=== PATIENT | male | born 1980 | race Caucasian/White ===

== ENCOUNTER 2021-01-30 10:25 | Observation (INO) | payer BC ==
[~2021-01-30] VITALS: Ht 175.3 cm; Wt 108.9 kg
[~2021-01-30 10:25] MED LIST: AFRIN15 M1; CYCLOBENZAPRINE10 MG PO; TRAMADOL HCL50 MG PO
[2021-01-30 11:15] LABS: HEMOGLOBIN 16.3 gm/dl (14.0-17.5); RED BLOOD COUNT 5.38 M/UL (4.20-5.50); WHITE BLOOD COUNT 11.9 K/UL (4.5-11.0)
[2021-01-30 11:42] LABS: BUN/CREATININE RATIO 16 (0-10)
[2021-01-30] MEDS ORDERED: TENORMIN 25 MG25 MG PO (16:18)
[2021-01-30] MEDS ORDERED: LISINOPRIL5 MG PO (16:18)
[2021-01-30] MEDS ORDERED: IBUPROFEN200 MG PO (16:21)
[2021-01-31 01:43] LABS: HEMOGLOBIN 14.7 gm/dl (14.0-17.5); RED BLOOD COUNT 4.95 M/UL (4.20-5.50); WHITE BLOOD COUNT 14.5 K/UL (4.5-11.0)
[2021-01-31 03:26] LABS: BUN/CREATININE RATIO 17 (0-10)
[2021-01-31] MEDS ORDERED: ISOSORBIDE MONO30 MG PO (13:06)
[2021-01-31] MEDS ORDERED: LISINOPRIL40 MG PO (13:06)
[2021-01-31] MEDS ORDERED: CARVEDILOL12.5 MG PO (13:06)
[2021-01-31] MEDS ORDERED: CLOPIDOGREL75 MG PO (13:06)
[2021-01-31] MEDS ORDERED: ATORVASTATIN CA20 MG PO (13:06)
== END 2021-01-31 16:26 | disposition home or self-care (01) ==
LOC: ER1 10:25 → CDU 13:16 → MED SURG 4 16:09
PROVIDERS: Physician Assistant; Physician Assistant Medical; ADMIT Internal Medicine Infectious Disease
DX: I16.0 Hypertensive urgency (principal); I10 Essential (primary) hypertension; I51.89 Other ill-defined heart diseases; I07.1 Rheumatic tricuspid insufficiency; F17.220 Nicotine dependence, chewing tobacco, uncomplicated; E66.9 Obesity, unspecified; Z68.35 Body mass index [BMI] 35.0-35.9, adult; Z20.822 Contact with and (suspected) exposure to COVID-19; Z79.899 Other long term (current) drug therapy; Z88.6 Allergy status to analgesic agent; Z96.691 Finger-joint replacement of right hand
CPT/HCPCS: ECHO; 36415; 71045; 78452; 80048; 80053; 80061; 82550; 82553; 83036; 83735; 83874; 84484; 85025; 85027; 93005; 93017; 93306; 96374; 96375; 99285; A9502; G0378; J0360; J2785; U0002

== ENCOUNTER 2021-02-03 12:42 | Inpatient (IN) | payer BC ==
[~2021-02-03] VITALS: Ht 172.7 cm; Wt 108.4 kg
[~2021-02-03 12:42] MED LIST changes: +ATORVASTATIN CA20 MG PO; +CARVEDILOL12.5 MG PO; +CLOPIDOGREL75 MG PO; +IBUPROFEN200 MG PO; +ISOSORBIDE MONO30 MG PO; +LISINOPRIL40 MG PO; +LISINOPRIL5 MG PO; +TENORMIN 25 MG25 MG PO
[2021-02-03 14:27] LABS: HEMOGLOBIN 15.4 gm/dl (14.0-17.5); RED BLOOD COUNT 5.06 M/UL (4.20-5.50); WHITE BLOOD COUNT 11.5 K/UL (4.5-11.0)
[2021-02-03 15:20] LABS: BUN/CREATININE RATIO 18 (0-10)
[2021-02-03] MEDS ORDERED: LIPITOR40 MG PO (15:59)
[2021-02-03] MEDS ORDERED: PLAVIX 75 MG TA75 MG PO (15:59)
[2021-02-03] MEDS ORDERED: COREG12.5 MG PO (15:59)
[2021-02-03] MEDS ORDERED: ISOSORBIDE MONO30 MG PO (16:00)
[2021-02-03] MEDS ORDERED: ZESTRIL40 MG PO (16:01)
[2021-02-04 02:48] LABS: HEMOGLOBIN 14.3 gm/dl (14.0-17.5); RED BLOOD COUNT 4.8 M/UL (4.20-5.50); WHITE BLOOD COUNT 13.9 K/UL (4.5-11.0)
[2021-02-04 03:13] LABS: BUN/CREATININE RATIO 18 (0-10)
[2021-02-05 02:53] LABS: BUN/CREATININE RATIO 19 (0-10)
--- NOTE | 2021-02-05 09:55 | NUR ---
TR BAND IN PLACE WITH ARM BAND IN PLACE TO PREVENT BENDING OF RIGHT WRIST. NO S/SX OF BLEEDING NOTED TO SITE. DECREASED SENSATION NOTED TO RIGHT HAND R/T ANESTHESIA. CAPILLARY REFILL LESS THAN THREE SECONDS. DENIES PAIN AND DISCOMFORT. KNEE HIGH SCUDS IN PLACE. BED LOCKED AND LOW. CALL LIGHT WITHIN REACH. PATIENT'S FATHER AT BEDSIDE. SURGICAL VITALS BEGAN PER PROTOCAL.
[2021-02-05] MEDS ORDERED: ISOSORBIDE MONO60 MG PO (12:18)
[2021-02-05] MEDS ORDERED: CATAPRES 0.1MG0.1 MG PO (12:18)
--- NOTE | 2021-02-05 14:18 | NUR ---
Instructed patient and brother, new PCP per pt request appointment made. med change to 60 mg imdur vs 30 mg. 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 Appointment made with resource manager. Keep appointments. verbalized understanding. Christina Oakes R.N.
== END 2021-02-05 14:44 | disposition home or self-care (01) | DRG 287 ==
LOC: ER1 12:42 → M/S 15:50 → CDU 15:50 → M/S 20:25
PROVIDERS: Nurse Practitioner; Physician Assistant; Physician Assistant Medical; ADMIT Internal Medicine
PROC: B2111ZZ Fluoroscopy of Multiple Coronary Arteries using Low Osmolar Contrast (ICD-10-PCS; principal; 2021-02-05)
DX: I25.119 Atherosclerotic heart disease of native coronary artery with unspecified angina pectoris (principal); I16.1 Hypertensive emergency; N17.9 Acute kidney failure, unspecified; Z20.822 Contact with and (suspected) exposure to COVID-19; I10 Essential (primary) hypertension; I16.0 Hypertensive urgency; E66.9 Obesity, unspecified; F17.210 Nicotine dependence, cigarettes, uncomplicated; Z88.8 Allergy status to other drugs, medicaments and biological substances; Z82.49 Family history of ischemic heart disease and other diseases of the circulatory system; Z68.36 Body mass index [BMI] 36.0-36.9, adult
CPT/HCPCS: 36415; 71045; 80048; 80053; 81001; 82436; 82550; 82553; 82570; 83874; 83880; 84133; 84156; 84300; 84484; 85025; 85610; 85730; 93005; 93571; 99152; 99153; 99285; C1769; C1894; J0360; J1644; J2250; J3010; J7030; Q9967; U0002

== ENCOUNTER 2021-06-02 16:22 | Emergency (ER) | payer BC ==
[~2021-06-02 16:22] MED LIST changes: +CATAPRES 0.1MG0.1 MG PO; +COREG12.5 MG PO; +ISOSORBIDE MONO60 MG PO; +LIPITOR40 MG PO; +PLAVIX 75 MG TA75 MG PO; +ZESTRIL40 MG PO
[2021-06-03] MEDS ORDERED: PREDNISONE20 MG PO (00:25)
== END 2021-06-03 00:45 | disposition home or self-care (01) ==
LOC: ER1 16:22
DX: K14.9 Disease of tongue, unspecified (principal); I11.9 Hypertensive heart disease without heart failure; Z79.82 Long term (current) use of aspirin
CPT/HCPCS: 99283

== ENCOUNTER 2022-05-19 12:13 | Observation (INO) | payer BC ==
[~2022-05-19] VITALS: Ht 175.3 cm; Wt 110.2 kg
[~2022-05-19 12:13] MED LIST changes: +PREDNISONE20 MG PO
[2022-05-19 13:07] LABS: HEMOGLOBIN 15.9 gm/dl (14.0-17.5); RED BLOOD COUNT 5.19 M/UL (4.20-5.50); WHITE BLOOD COUNT 11.2 K/UL (4.5-11.0)
[2022-05-19 13:33] LABS: BUN/CREATININE RATIO 15 (0-10)
[2022-05-19] MEDS ORDERED: CLONIDINE1 EAC2 TD (17:57)
[2022-05-19] MEDS ORDERED: ATORVASTATIN CA20 MG PO (18:07)
[2022-05-19] MEDS ORDERED: CARVEDILOL12.5 MG PO (18:08)
[2022-05-19] MEDS ORDERED: CLOPIDOGREL75 MG PO (18:09)
[2022-05-19] MEDS ORDERED: LISINOPRIL40 MG PO (18:10)
[2022-05-19] MEDS ORDERED: ISOSORBIDE MONO60 MG PO (18:10)
[2022-05-20 02:55] LABS: HEMOGLOBIN 15.1 gm/dl (14.0-17.5); RED BLOOD COUNT 4.98 M/UL (4.20-5.50); WHITE BLOOD COUNT 11.4 K/UL (4.5-11.0)
[2022-05-20 10:02] LABS: BUN/CREATININE RATIO 19 (0-10)
[2022-05-20] MEDS ORDERED: CARVEDILOL25 MG PO (11:11)
[2022-05-20] MEDS ORDERED: PROTONIX 40 MG40 M1 PO (11:11)
== END 2022-05-20 13:05 | disposition home or self-care (01) ==
LOC: ER1 12:13 → CDU 15:41 → MED SURG 4 20:55
PROVIDERS: Physician Assistant; ADMIT Internal Medicine Infectious Disease
DX: R07.89 Other chest pain (principal); I16.0 Hypertensive urgency; I25.10 Atherosclerotic heart disease of native coronary artery without angina pectoris; I10 Essential (primary) hypertension; E78.5 Hyperlipidemia, unspecified; E66.9 Obesity, unspecified; Z68.35 Body mass index [BMI] 35.0-35.9, adult; F17.210 Nicotine dependence, cigarettes, uncomplicated; Z79.02 Long term (current) use of antithrombotics/antiplatelets; Z79.899 Other long term (current) drug therapy; Z88.6 Allergy status to analgesic agent
CPT/HCPCS: 36415; 70450; 71045; 80048; 80053; 82550; 82553; 83690; 84484; 85025; 93005; 96374; 96376; 99285; G0378; J0360